=== PATIENT | female | born 1955 | race Caucasian/White ===

== ENCOUNTER 2018-01-20 15:46 | Emergency (ER) | payer BC, OTHER ==
[2018-01-20] MEDS ORDERED: MECLIZINE HCL 12.5 MG TAB ONE (16:12)
--- NOTE | 2018-01-20 16:43 | RAD REPORT ---
EXAM DESCRIPTION: CT - Head Brain Wo Cont - 01/20/2018 4:27 pm CLINICAL HISTORY: Dizziness, weakness, syncope COMPARISON: None. TECHNIQUE: Axial 5 mm thick images of the head were obtained without IV contrast. All CT scans are performed using dose optimization technique as appropriate and may include automated exposure control or mA/KV adjustment according to patient size. FINDINGS: No intracranial hemorrhage, mass, edema or shift of mid-line structures. No acute infarcti on changes seen. No abnormal extra-axial fluid collections. Ventricles are normal. Mastoid air cells and visualized portions of the paranasal sinuses are clear. No acute bony findings. IMPRESSION: Negative non-contrast CT head examination.
--- NOTE | 2018-01-20 17:07 | RAD REPORT ---
EXAM DESCRIPTION: RAD - Chest Pa And Lat (2 Views) - 01/20/2018 4:41 pm CLINICAL HISTORY: Weakness, dizziness, shortness of breath COMPARISON: None. TECHNIQUE: PA and lateral views of the chest were obtained. FINDINGS: The lungs are normal volume. No focal consolidations seen. No large mass or failure findin g. There is ill-defined nodular density in the lower left lung field superimposed on the posterior ni nth rib. Summation artifact is favored. Pulmonary nodule is not excluded. Repeat imaging can be perfo rmed in 3-4 months. Any old outside chest film could be submitted as an alternative. If there is tracy gent clinical concern, CT chest imaging could be performed. Nipple shadow seen lower right lung field . Heart size is normal and central vasculature is within normal limits. No pleural effusion or pne umothorax seen. No acute bony finding noted. No aortic abnormality. IMPRESSION: No pneumonia, failure or acute finding seen. They subcentimeter nodularity lower left lung field can be compared outside exam, re-evaluated in 3-4 months or evaluated with CT imaging if there are emergent findings.
[2018-01-20] MEDS ORDERED: NA CHLORIDE 0.9% 1,000 ML ONE (17:10)
[2018-01-20 17:20] LABS: Absolute Monocytes 0.6 K/uL (0.1-1.3); Absolute Neutrophil 2.8 K/uL (1.8-8.0); Basophils % 1.1 % (0-1.3); Eosinophils % 3.1 % (0-4.4); MCH 30.9 pg (27.0-35.0); MCV 89.4 fL (80-100); MPV 8.8 fL (7.6-11.3); Monocytes % 13.5 % (3.3-12.3); RBC Red Blood Cell Count 4.14 M/uL (3.86-4.86)
[2018-01-20 17:40] LABS: Potassium 3.8 mmol/L (3.5-5.1)
--- NOTE | 2018-01-20 17:47 | ER ---
Nurse's Notes [facility] Name: Mala Perea Age: 62 yrs Sex: Female : 1955 Arrival Date: 01/20/2018 Time: 15:51 Bed 28 Private MD: Diagnosis: Vertigo of central origin, left ear Presentation: 01/20 15:51 Presenting complaint: Patient states: when i got up from bed since last night, i felt hj dizzy, like that im spinning; it happened again this morning that i almost fell; denies fever and chills; reports nausea; denies chest pain;. Transition of care: patient was not received from another setting of care. Onset of symptoms was January 20, 2018. Risk Assessment: Do you want to hurt yourself or someone else? Patient reports no desire to harm self or others. Initial Sepsis Screen: Does the patient meet any 2 criteria? No. Patient's initial sepsis screen is negative. Does the patient have a suspected source of infection? No. Patient's initial sepsis screen is negative. Care prior to arrival: None. 15:51 Method Of Arrival: Ambulatory 15:51 Acuity: TRISH 3 hj Triage Assessment: 15:55 General: Appears in no apparent distress. uncomfortable, Behavior is calm, cooperative, hj appropriate for age. Pain: Denies pain. Historical: - Allergies: 15:54 No Known Allergies; hj - Home Meds: 15:54 estrogen patch [Active]; headache medication [Active]; hj - PMHx: 15:54 None; hj - PSHx: 15:54 Cholecystectomy; Tonsillectomy; hj - Immunization history:: Adult Immunizations not up to date, Adult Immunizations. - Social history:: Smoking status: Patient/guardian denies using tobacco, Patient/guardian denies using. - Ebola Screening: : Patient negative for fever greater than or equal to 101.5 degrees Fahrenheit, and additional compatible Ebola Virus Disease symptoms Patient denies exposure to infectious person Patient denies travel to an Ebola-affected area in the 21 days before illness onset. Screenin:55 Abuse screen: Denies threats or abuse. Denies injuries from another. Nutritional hj screening: No deficits noted. Tuberculosis screening: No symptoms or risk factors identified. Fall Risk None identified. Assessment: 16:12 General: Appears in no apparent distress. comfortable, Behavior is calm, cooperative. mg2 Pain: Denies pain. Pain: Complains of pain in head Pain does not radiate. Pain currently is 4 out of 10 on a pain scale. Quality of pain is described as aching, Pain began gradually. Neuro: Neuro: Reports dizziness. Cardiovascular: Capillary refill < 3 seconds Patient's skin is warm and dry. Respiratory: Airway is patent Respiratory effort is even, unlabored, Respiratory pattern is regular, symmetrical. GI: No signs and/or symptoms were reported involving the gastrointestinal system. : No signs and/or symptoms were reported regarding the genitourinary system. EENT: No signs and/or symptoms were reported regarding the EENT system. Derm: Skin is intact, Skin is pink, warm \T\ dry. normal. Musculoskeletal: No signs and/or symptoms reported regarding the musculoskeletal system. 18:00 Reassessment: Patient appears in no apparent distress at this time. Patient and/or mg2 family updated on plan of care and expected duration. Pain level reassessed. Patient is alert, oriented x 3, equal unlabored respirations, skin warm/dry/pink. Vital Signs: 15:55 BP 157 / 73; Pulse 75; Resp 18; Temp 98.3(TE); Pulse Ox 97% on R/A; Weight 63.5 kg; hj Height 5 ft. 0 in. (152.40 cm); Pain 0/10; 17:13 BP 155 / 80; Pulse 76; Resp 18; Pulse Ox 100% on R/A; Pain 0/10; mg2 18:00 BP 154 / 78; Pulse 77; Resp 18; Pulse Ox 100% on R/A; Pain 0/10; mg2 15:55 Body Mass Index 27.34 (63.50 kg, 152.40 cm) ED Course: 15:51 Patient arrived in ED. hj 15:53 Triage completed. hj 15:54 Patricia Latham [facility]C [facility]. snw 15:54 Cedrick Flynn MD is Attending Physician. snw 15:55 Arm band placed on right wrist. hj 15:55 Patient has correct armband on for positive identification. Placed in gown. Bed in low hj position. Call light in reach. Side rails up X 1. 15:58 Star Varela RN is Primary Nurse. mg2 16:17 EKG done, by broadband technician. reviewed by Patricia ZAMAN. 3 16:[address] wv 16:27 CT completed. Patient tolerated procedure well. Patient moved back from CT. wv 16:27 CT Head Brain wo Cont In Process Unspecified. EDMS 16:39 Chest Pa And Lat (2 Views) XRAY In Process Unspecified. EDMS 17:16 Inserted saline lock: 20 gauge in right antecubital area, using aseptic technique. mb4 Blood collected. 17:16 Initial lab(s) drawn, by va, sent to lab. mb4 18:00 No provider procedures requiring assistance completed. IV discontinued, intact, mg2 bleeding controlled, No redness/swelling at site. Pressure dressing applied. Administered Medications: 16:11 Drug: Antivert 50 mg Route: PO; mg2 17:25 Follow up: Response: No adverse reaction; Marked relief of symptoms mg2 17:25 Drug: NS 0.9% 1000 ml Route: IV; Rate: 125 ml/hr; Site: right antecubital; mg2 Outcome: 17:46 Discharge ordered by . fatoumata 18:01 Discharged to home ambulatory, with family. mg2 18:01 Condition: stable 18:01 Discharge instructions given to patient, family, Instructed on discharge instructions, follow up and referral plans. medication usage, Demonstrated understanding of instructions, follow-up care, medications, Prescriptions given X 1. 18:01 Patient left the ED. mg2 Signatures: Dispatcher [employer] EDNV Patricia Latham FNP-C RADIO RIGGER-Csnw Jeff Altamirano RN RN hj Jordan, Nathan nj Gardose, Michele, RN RN [facility] Hayley Mcintyre [facility] Yelena Murphy 4 Corrections: (The following items were deleted from the chart) 15:57 15:55 Pulse 75bpm; Resp 18bpm; Pulse Ox 97% RA; Temp 98.3F Temporal; 63.5 kg; Height 5 hj ft. 0 in.; BMI: 27.3; Pain 0/10; hj
--- NOTE | 2018-01-20 17:47 | EDPHYS ---
Physician Documentation [facility] Name: Mala Perea Age: 62 yrs Sex: Female : 1955 Arrival Date: 01/20/2018 Time: 15:51 Bed 28 Private MD: ED Physician Cedrick Flynn HPI: 01/20 16:22 This 62 yrs old Female presents to ER via Ambulatory with complaints of snw Dizziness. 16:22 The patient presents with sense of spinning, vertigo. Onset: The symptoms/episode snw began/occurred suddenly. Context: occurred while the patient was getting up from bed, just prior to the episode the patient experienced no apparent symptoms. Associated signs and symptoms: Pertinent positives: one month hx of fatigue, mild uri s/s a week ago, recent dental work. Severity of symptoms: At their worst the symptoms were moderate severe. The patient has not experienced similar symptoms in the past. dental work. no fever, no vomiting, no medical hx barring headaches occasionally. Pt takes estrogen and occasional Fioricet for headaches. Historical: - Allergies: 15:54 No Known Allergies; hj - Home Meds: 15:54 estrogen patch [Active]; headache medication [Active]; hj - PMHx: 15:54 None; hj - PSHx: 15:54 Cholecystectomy; Tonsillectomy; hj - Immunization history:: Adult Immunizations not up to date, Adult Immunizations. - Social history:: Smoking status: Patient/guardian denies using tobacco, Patient/guardian denies using. - Ebola Screening: : Patient negative for fever greater than or equal to 101.5 degrees Fahrenheit, and additional compatible Ebola Virus Disease symptoms Patient denies exposure to infectious person Patient denies travel to an Ebola-affected area in the 21 days before illness onset. ROS: 16:22 Constitutional: Negative for fever, chills, and weight loss, Eyes: Negative for injury, snw pain, redness, and discharge, ENT: Negative for injury, pain, and discharge, Neck: Negative for injury, pain, and swelling, Cardiovascular: Negative for chest pain, palpitations, and edema, Respiratory: Negative for shortness of breath, cough, wheezing, and pleuritic chest pain, Abdomen/GI: Negative for abdominal pain, nausea, vomiting, diarrhea, and constipation, Back: Negative for injury and pain, : Negative for injury, bleeding, discharge, and swelling, MS/Extremity: Negative for injury and deformity, Skin: Negative for injury, rash, and discoloration. 16:22 Psych: Negative for depression, anxiety, suicide ideation, homicidal ideation, and hallucinations. 16:22 Neuro: Positive for dizziness. Exam: 16:20 Constitutional: This is a well developed, well nourished patient who is awake, alert, snw and in no acute distress. Head/Face: Normocephalic, atraumatic. Eyes: Pupils equal round and reactive to light, extra-ocular motions intact. Lids and lashes normal. Conjunctiva and sclera are non-icteric and not injected. Cornea within normal limits. Periorbital areas with no swelling, redness, or edema. ENT: Nares patent. No nasal discharge, no septal abnormalities noted. Tympanic membranes are normal and external auditory canals are clear. Oropharynx with no redness, swelling, or masses, exudates, or evidence of obstruction, uvula midline. Mucous membranes moist. Neck: Trachea midline, no thyromegaly or masses palpated, and no cervical lymphadenopathy. Supple, full range of motion without nuchal rigidity, or vertebral point tenderness. No Meningismus. Chest/axilla: Normal chest wall appearance and motion. Nontender with no deformity. No lesions are appreciated. Cardiovascular: Regular rate and rhythm with a normal S1 and S2. No gallops, murmurs, or rubs. Normal PMI, no JVD. No pulse deficits. Respiratory: Lungs have equal breath sounds bilaterally, clear to auscultation and percussion. No rales, rhonchi or wheezes noted. No increased work of breathing, no retractions or nasal flaring. Abdomen/GI: Soft, non-tender, with normal bowel sounds. No distension or tympany. No guarding or rebound. No evidence of tenderness throughout. Back: No spinal tenderness. No costovertebral tenderness. Full range of motion. Skin: Warm, dry with normal turgor. Normal color with no rashes, no lesions, and no evidence of cellulitis. MS/ Extremity: Pulses equal, no cyanosis. Neurovascular intact. Full, normal range of motion. 16:20 Neuro: Orientation: is normal, Mentation: is normal, Memory: is normal, Cranial nerves: grossly normal, Cerebellar function: dizziness with head movement, Motor: is normal, Sensation: is normal, Gait: not tested. seizure activity, is not displayed by the patient, mild left nystagmus with left head turn, ratna performed. 16:26 ECG was reviewed by the Attending Physician. snw Vital Signs: 15:55 BP 157 / 73; Pulse 75; Resp 18; Temp 98.3(TE); Pulse Ox 97% on R/A; Weight 63.5 kg; hj Height 5 ft. 0 in. (152.40 cm); Pain 0/10; 17:13 BP 155 / 80; Pulse 76; Resp 18; Pulse Ox 100% on R/A; Pain 0/10; mg2 18:00 BP 154 / 78; Pulse 77; Resp 18; Pulse Ox 100% on R/A; Pain 0/10; mg2 15:55 Body Mass Index 27.34 (63.50 kg, 152.40 cm) hj Procedures: 16:19 Performed Ratna manuever. snw MDM: 15:57 Patient medically screened. snw 17:48 Data reviewed: vital signs, nurses notes. Data interpreted: Pulse oximetry: on room air snw is 100 %. Interpretation: normal. Counseling: I had a detailed discussion with the patient and/or guardian regarding: the historical points, exam findings, and any diagnostic results supporting the discharge/admit diagnosis, the presence of at least one elevated blood pressure reading (>120/80) during this emergency department visit, lab results, radiology results, the need for outpatient follow up, to return to the emergency department if symptoms worsen or persist or if there are any questions or concerns that arise at home. Special discussion: I have referred the patient to see his PCP for further evaluation of high blood pressure. Based on the history and exam findings, there is no indication for further emergent testing or inpatient evaluation. I discussed with the patient/guardian the need to see the ENT specialist for further evaluation of the symptoms. I discussed with the patient/guardian the need to see the primary care provider for further evaluation of the symptoms. 01/20 16:57 Order name: CBC with Diff; Complete Time: 17:29 snw 01/20 16:57 Order name: Chem 7; Complete Time: 17:44 snw 01/20 15:58 Order name: CT Head Brain wo Cont; Complete Time: 16:48 snw 01/20 15:58 Order name: Chest Pa And Lat (2 Views) XRAY; Complete Time: 17:09 snw 01/20 15:58 Order name: EKG; Complete Time: 15:59 snw 01/20 15:58 Order name: EKG - Nurse/Tech; Complete Time: 16:12 snw EC:26 Rate is 65 beats/min. Rhythm is regular. QRS [place] is Normal. PA interval is normal. QRS snw interval is normal. QT interval is normal. No Q waves. T waves are Normal. No ST changes noted. Clinical impression: Normal ECG. Administered Medications: 16:11 Drug: Antivert 50 mg Route: PO; mg2 17:25 Follow up: Response: No adverse reaction; Marked relief of symptoms mg2 17:25 Drug: NS 0.9% 1000 ml Route: IV; Rate: 125 ml/hr; Site: right antecubital; mg2 Disposition: 01/21 07:12 Co-signature as Attending Physician, Cedrick Flynn MD I agree with the assessment and aaron plan of care. Disposition: 01/20/18 17:46 Discharged to Home. Impression: Vertigo of central origin, left ear. - Condition is Stable. - Discharge Instructions: Dizziness, Vertigo, Ratna Maneuver Self-Care. - Prescriptions for Antivert 25 mg Oral Tablet - take 1 tablet by ORAL route every 8 hours As needed; 20 tablet. - Work release form, Medication Reconciliation Form, Thank You Letter, Antibiotic Education, Prescription Opioid Use form. - Follow up: Private Physician; When: 2 - 3 days; Reason: Recheck today's complaints, Continuance of care, Re-evaluation by your physician. Follow up: Emergency Department; When: As needed; Reason: Worsening of condition. Signatures: Dispatcher [employer] Cedrick rOr MD MD cha Therrien, Shelly, COMPUTATIONAL THEORY SCIENTIST-C COMPUTATIONAL THEORY SCIENTIST-Csnw Jeff Altamirano RN RN hj Gardose, Michele, RN RN mg2 Corrections: (The following items were deleted from the chart) 01/20 18:01 17:46 01/20/2018 17:46 Discharged to Home. Impression: Vertigo of central origin, left mg2 ear. Condition is Stable. Forms are Medication Reconciliation Form, Thank You Letter, Antibiotic Education, Prescription Opioid Use. Follow up: Private Physician; When: 2 - 3 days; Reason: Recheck today's complaints, Continuance of care, Re-evaluation by your physician. Follow up: Emergency Department; When: As needed; Reason: Worsening of condition. snw
--- NOTE | 2018-01-20 23:08 | EKG ---
Test Date: 2018-01-20 Test Time: 16:13:13 Senior Climate Advisor: AWILDA MEASUREMENT RESULTS: Intervals: Rate: 65 UT: 166 QRSD: 82 QT: 418 QTc: 434 [place]: P: 70 UT: 166 QRS: 73 T: 61 INTERPRETIVE STATEMENTS: Normal sinus rhythm Normal ECG No previous ECG available for comparison Electronically Signed On 01-20-18 23:07:38 CDT by Micky Casas
== END 2018-01-20 18:01 | disposition home or self-care (01) ==
LOC: ER 15:46
DX: H81.42 Vertigo of central origin, left ear (principal)
CPT/HCPCS: 36415; 70450; 71046; 80048; 85025; 93005; 99284; J7030